=== PATIENT | male | born 1940 | race Caucasian/White ===

== ENCOUNTER → 2017-11-05 09:22 | Outpatient (CLI) | payer MEDICARE, SELFPAY ==
[2017-11-05 11:56] LABS: Absolute Neutrophil Count 2.4 X10^3/uL (2.0-7.7); Basophil# 0.02 X10^3/uL; Basophil% 0.5 % (0-1); Eosinophil# 0.08 X10^3/uL; Eosinophils% 1.8 % (0-5); Hematocrit 44.6 % (40-54); Hemoglobin 14.9 g/dl (13.0-16.5); Lymphocyte % 29.4 % (19-41); Mean Corp Hgb Conc 33.4 g/gl (32-36); Mean Corpuscular Hgb 31.6 pg (27.0-32.0); Mean Corpuscular Volume 94.5 fL (80-94); Mean Platelet Vol. 10.8 fl (6.2-12.0); Monocyte# 0.59 X10^3/uL; Monocyte% 13.3 % (0-10); Neutrophil # 2.43 X10^3/uL (2.7-7.7); POSITIVE COUNT NO; POSITIVE DIFFERENTIAL NO; POSITIVE MORPHOLOGY NO; Platelet Count 176 K/mm3 (150-450); RBC Distribution Width CV 12.9 % (11.6-14.6); RBC Distribution Width SD 43.4 fl (35.1-43.9); Red Blood Count 4.72 M/mm3 (4.6-6.2); White Blood Count 4.4 K/mm3 (4.4-11.0)
[2017-11-05 12:12] LABS: Cholesterol 164 mg/dL (200); Glucose 87 mg/dL (74-106); High Density Lipoprotein 48 mg/dL; Triglycerides 84 mg/dL; Very Low Density Lipoprotein 17 mg/dL (5-40)
== END ==
PROVIDERS: Family Provider Family Medicine; PCP Family Medicine; Visit Provider Family Medicine
DX: R23.8 Other skin changes (principal); Z13.220 Encounter for screening for lipoid disorders; Z13.1 Encounter for screening for diabetes mellitus
CPT/HCPCS: 36415; 80061; 82947; 85025

== ENCOUNTER → 2019-04-12 15:41 | Outpatient (CLI) | payer MEDICARE, SELFPAY ==
--- NOTE | 2019-04-12 12:10 | PAPI_PTH ---
PATIENT: CELIA GARCIAS LOC: [facility] U#:[id number] AGE/SX: 85/M ROOM: RE04/12/[address]: Dr. Jose Luis Velasquez MD : 1940 BED: DIS: SPEC #: [id number] RECD: 04/12/19 15:27 STATUS: NAYELY GALA #: [id number] MATEO: 04/12/19 12:[address]: Jose Luis Velasquez DEPT: SURGICAL PATHOLOGY RECD BY: Jose Wilson ENTERED: 04/13/19 10:21 SP TYPE: PAPILLOMA OTHR DR: Dr. Tico Marroquin MD Tissues: Right eye Procedures: Surgery Specimen Level IV HEADER OPERATION: Excision squamous papilloma right cornea PRE-OP DIAGNOSIS: Squamous papilloma right cornea TISSUE SUBMITTED: Squamous papilloma right cornea MICROSCOPIC DIAGNOSIS Squamous papilloma right cornea, biopsy: Fragments of benign squamous mucosa. See comment. AM:shawn 04/14/19 COMMENT The findings are consistent with a squamous papilloma. Clinical correlation is suggested. MICROSCOPIC DESCRIPTION Slides are reviewed. GROSS DESCRIPTION Received in fixative is one container labeled with the patient's name and designated squamous papilloma right cornea. The specimen consists of a few minute fragments of alvarez soft tissue measuring 0.1 x 0.1 x 0.1 cm. The entire specimen is submitted in one cassette. / SJ:shawn 04/13/19 TC:5 [facility]: [id number]
== END ==
PROVIDERS: Family Provider Family Medicine; PCP Family Medicine; Referring Provider Ophthalmology; Visit Provider Ophthalmology
DX: D31.1 Benign neoplasm of cornea (principal)
CPT/HCPCS: 88305

== ENCOUNTER 2020-11-28 13:02 | Outpatient (RCR) | payer MEDICARE, SELFPAY ==
[2015-03-25 08:27] VITALS: BMI 25.9
[2020-11-28] MEDS: COVID-19 VACC, MRNA(PFIZER)/PF 30 MCG/0.3 ML SYRINGE IM (11:01)
[2020-12-19] MEDS: COVID-19 VACC, MRNA(PFIZER)/PF 30 MCG/0.3 ML SYRINGE IM (10:59)
== END 2021-02-25 23:59 ==
LOC: IMMUN 13:02
PROVIDERS: PCP Family Medicine; Referring Provider Family Medicine; Visit Provider Family Medicine
DX: Z23 Encounter for immunization (principal)
CPT/HCPCS: 0001A; 0002A; 91300

== ENCOUNTER 2022-02-02 21:00 | Emergency (ER) | payer MEDICARE, SELFPAY ==
[2022-02-02 21:01] VITALS: BP 172/84; PULSE 84; RESP 16; TEMP 36.2; O2SAT 97; BMI 23.6
--- NOTE | 2022-02-02 21:28 | EX.ED.GENINJ ---
HPI History of Present Illness Chief Complaint: Laceration Informant: patient Narrative Narrative: 81-year-old male presenting to the emergency department with head injury. Patient states he tripped and fell over the vacuum cleaning hose striking his head on the kitchen floor. No loss of consciousness. He denies any current headache. He is unsure of his last tetanus but believes it is up-to-date and would prefer to wait and find out if he has had one recently. He notes an aspirin but no other blood thinners. He denies any neck pain or other injuries. Tetanus Immunization: Unknown [facility] Medical History (Updated 02/02/22 @ 21:[address] Marquise Raymond DO) FHx: bilateral hip replacements Home Medications cholecalciferol (vitamin D3) [Vitamin D3] 1,000 unit PO DAILY 11/08/14 [History Last Taken Unknown] coenzyme Q10 [Co Q-10] 200 mg PO DAILY 11/08/14 [History Last Taken Unknown] buocfarv-jqcw-obk8-C-ruddy-bosw [Osteo Bi-Flex Triple Strength] 1 ea PO DAILY 11/08/14 [History Last Taken Unknown] multivitamin with folic acid [Thera] 1 tab PO DAILY 11/08/14 [History Last Taken Unknown] vit A,C and U-aaupdt-jzcdzwdj [Ocuvite with Lutein] 1 ea PO DAILY 11/08/14 [History Last Taken Unknown] vitamin E (dl, acetate) 400 units PO DAILY 11/08/14 [History Last Taken 11/12/14] aspirin 325 mg PO BIDCM #60 tablet 03/27/15 [Rx Last Taken Unknown] hydrocodone-acetaminophen 1 - 2 tab PO Q4H PRN PRN #90 tablet 03/27/15 [Rx Last Taken Unknown] Allergy/AdvReac Type Severity Reaction Status Date / Time No Known Allergies Allergy Verified 02/02/22 21:02 Social History (Updated 02/02/22 @ 21:[address] Marquise Raymond DO) Smoking Status: Never smoker substance use type: does not use ROS ROS ED Constitutional Constitutional ED: Denies chills, fever(s) or weight loss Eyes Eyes: Denies change in vision or diplopia ENT ENT ED: Denies ear pain, rhinorrhea or sore throat Cardiovascular Cardiovascular: Denies chest pain, orthopnea, palpitations or racing heartbeat Respiratory/Chest Respiratory/Chest: Denies cough, dyspnea or orthopnea Gastrointestinal Gastrointestinal: Denies abdominal pain, diarrhea, nausea or vomiting Genitourinary Genitourinary ED: Denies dysuria, hematuria or urinary frequency Musculoskeletal Musculoskeletal: Denies arthralgias or myalgias Integumentary Reports other Details: Occipital laceration ; Denies abscess or rash Neurologic Neurologic: Denies headache(s) or weakness Psychiatric Psychiatric: Denies anxiety, depression, suicidal ideation or suicidal thoughts Endocrine Endocrinology: Denies polydipsia, polyphagia or polyuria Allergic/Immunologic Allergic/Immunologic ED: Denies mouth swelling, tongue swelling or urticaria EXAM Physical Exam Const Vital Signs: 02/02/22 21:01 Temperature 97.1 F L Temperature Source Temporal Pulse Rate 84 Respiratory Rate 16 Blood Pressure 172/84 H Blood Pressure Mean 113 Pulse Ox 97 Oxygen Delivery Method Room Air Positive well nourished and well developed General Appearance ED: well developed HEENT Reports normocephalic, head/scalp atraumatic, TM's clear and moist mucous membranes HEENT Narrative: There is a half curyung 2 and half centimeter long laceration to the occipital vertex of his scalp. Bleeding is controlled. trauma Tympanic Membrane ED: Yes TM's clear Eyes PERRL and EOMs intact bilaterally Neck full ROM, no lymphadenopathy, supple and no JVD General: Negative for tenderness Resp normal respiratory effort and clear to auscultation bilaterally Cardio regular rate, regular rhythm and no murmurs GI normal to inspection, nondistended, normoactive bowel sounds and non-tender Palpation: soft Back/Spine no CVA tenderness and normal ROM Extremity normal to inspection General Extremety ED: Negative for edema General Extremity: Negative for edema Neuro oriented x3 and CN's II-XII intact bilaterally Sensorium / Orientation: alert Motor Exam: strength 5/5 throughout Psych mental status grossly normal Mood & Affect: Negative for depressed or tearful Skin no rashes or lesions noted and no wounds MDM MDM MDM Narrative Medical decision making narrative: CT the brain did not demonstrate any fracture or hemorrhage. Wound was locally anesthetized using 1% lidocaine washed with Shur-Clens and explored. No foreign bodies were noted. It was closed using 3 simple erupted 5-0 Vicryl sutures. Wound care discussed with patient. Return if worsening or concerns Radiography Diagnostic Testing: Clinical Impression(s) from Imaging Studies Brain CT 02/02/22 21:38 IMPRESSION: 1. Mild cortical, central, and cerebellar atrophy. 2. No subdural, epidural, or intracerebral hematoma, hemorrhage or contusion. 3. No infarcts or mass lesions. 4. Normal calvarium without linear or depressed skull fractures. 5. Normal paranasal sinuses. Electronically Signed: Osvaldo Zepeda MD at 22:12 EDT , Discharge Plan Triage Chief Complaint: Laceration ED Provider: Marquise Raymond Dx/Rx/DC Orders Clinical Impression: Laceration of scalp, Head injury due to trauma Instructions: ED Laceration Scalp Stitches or [place] Prescriptions: No Action coenzyme Q10 [Co Q-10] 200 MG capsule 200 mg PO DAILY RF: 0 vit A,C and P-zqlkcs-qwbhsssa [Ocuvite with Lutein] 1 EACH tablet 1 ea PO DAILY RF: 0 cholecalciferol (vitamin D3) [Vitamin D3] 1,000 UNIT tablet 1,000 unit PO DAILY RF: 0 vitamin E (dl, acetate) 400 UNITS capsule 400 units PO DAILY RF: 0 multivitamin with folic acid [Thera] 1 TABLET tablet 1 tab PO DAILY RF: 0 shwvoeai-cimj-job7-C-ruddy-bosw [Osteo Bi-Flex Triple Strength] 1 EACH tablet 1 ea PO DAILY RF: 0 hydrocodone-acetaminophen 1 TABLET tablet 1 - 2 tab PO Q4H PRN PRN (Reason: Mild-Mod Pain (-01/27)) Qty: 90 RF: 0 aspirin 325 MG tablet 325 mg PO BIDCM Qty: 60 RF: 0 Primary Care Provider: Delmar Seymour Referrals: Delmar Seymour MD [Primary Care Provider] - As Needed Activity Restrictions/Additional Instructions: As discussed your stitches are absorbable. Please do not apply any antibiotic ointment to the area until the stitches have come out. You are approved to shower but not to swim. Disposition Disposition: Home, Self Care
--- NOTE | 2022-02-02 21:38 | CT_ITS ---
STUDY: CT BRAIN WITHOUT CONTRAST ENHANCEMENT OF 2142 HOURS ON 02/02/2022 REASON FOR EXAM: 81-year-old male with head injury. RADIATION DOSAGE (If Supplied By Facility): CTDIvol = ( 44.99 ) mGy, DLP = ( 897.35 ) mGycm TECHNIQUE: Transaxial CT imaging of the brain was performed without administration of intravenous contrast material. COMPARISON: No relevant priors. FINDINGS: Mild cortical, central, and cerebellar atrophy. No subdural, epidural, intracerebral hematoma, hemorrhage or contusion. No subarachnoid hemorrhage. No ischemic or hemorrhagic cerebral infarct. No intracranial neoplasms. Normal calvarium without linear or depressed skull fractures. Normal paranasal sinuses. CT/Brain/Head without Contrast IMPRESSION: 1. Mild cortical, central, and cerebellar atrophy. 2. No subdural, epidural, or intracerebral hematoma, hemorrhage or contusion. 3. No infarcts or mass lesions. 4. Normal calvarium without linear or depressed skull fractures. 5. Normal paranasal sinuses. Electronically Signed: Osvaldo Zepeda MD at 22:12 EDT ,
[2022-02-02] MEDS: Lidocaine 1% (5 ml sdv) 5 ML Vial INFILT (21:53)
[2022-02-02 22:19] VITALS: BP 122/78; PULSE 78; RESP 14; TEMP 37; O2SAT 99
== END 2022-02-02 22:20 | disposition home or self-care (01) ==
LOC: ED 21:36
PROVIDERS: Emergency Provider Emergency Medicine; PCP Family Medicine; Visit Provider Emergency Medicine
DX: S01.01XA Laceration without foreign body of scalp, initial encounter (principal); W01.198A Fall on same level from slipping, tripping and stumbling with subsequent striking against other object, initial encounter; Z79.82 Long term (current) use of aspirin; Z79.899 Other long term (current) drug therapy; Z96.643 Presence of artificial hip joint, bilateral
CPT/HCPCS: 12001; 70450; 99283